=== PATIENT | male | born 1985 | race Caucasian/White ===

== ENCOUNTER 2017-02-20 21:05 | Emergency (ER) | payer OTHER ==
[~2017-02-20] VITALS: Ht 198.1 cm; Wt 86.4 kg
[~2017-02-20 21:05] MED LIST: KEP500TA PO
[2017-02-20 21:12] VITALS: BP 152/98; PULSE 105; RESP 16; O2SAT 97
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
[2017-02-20] MEDS ORDERED: Haloperidol 5 mg/mL Inj IM ONE (21:35)
[2017-02-20 22:58] LABS: BASOPHILS % (AUTO) 0.2 % (0-3); EOSINOPHILS % (AUTO) 2.3 % (0-5); MONOCYTES % (AUTO) 11.3 % (4-12); Mean Corpuscular Hemoglobin 32.5 pg (27.0-35.0); Mean Corpuscular Volume 89.5 fL (81-100); NEUTROPHILS % (AUTO) 54.9 % (40-74); Platelet Count 218 bil/L (150-400)
[2017-02-21 10:11] VITALS: BP 101/59; PULSE 87; RESP 18; O2SAT 98
== END 2017-02-21 10:12 ==
LOC: SED 21:05
DX: R45.851 Suicidal ideations (principal); F15.20 Other stimulant dependence, uncomplicated; S60.812A Abrasion of left wrist, initial encounter; X78.9XXA Intentional self-harm by unspecified sharp object, initial encounter; Y93.9 Activity, unspecified; Y92.9 Unspecified place or not applicable; Y99.8 Other external cause status; F17.200 Nicotine dependence, unspecified, uncomplicated; Z87.828 Personal history of other (healed) physical injury and trauma
CPT/HCPCS: 36415; 80053; 81002; 82075; 84443; 85025; 90791; 96372; 99285; G0480; J1200; J1630; J2060

== ENCOUNTER 2017-05-12 22:52 | Emergency (ER) | payer OTHER ==
[~2017-05-12] VITALS: Ht 198.1 cm; Wt 100.0 kg
[2017-05-12 22:58] VITALS: BP 117/79; PULSE 60; RESP 27; O2SAT 98
[2017-05-12] MEDS ORDERED: Tetracaine 0.5% 4 mL Ophthalmic Solution ONE (23:07)
[2017-05-12] MEDS ORDERED: Fluorescein 0.6 mg Ophthalmic Strip ONE (23:07)
[2017-05-12] MEDS ORDERED: 0.9% Sodium Chloride Inhalation Solution ONE (23:07)
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
[2017-05-13] MEDS ORDERED: Ondansetron 2 mg/mL 2 mL Inj IVPUSH ONE ×2 (00:05→01:50)
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
[2017-05-13] MEDS ORDERED: fentaNYL-PF 50 mCg/mL 2 mL Inj IVPUSH ONE (00:15)
[2017-05-13 00:33] LABS: BASOPHILS % (AUTO) 0.4 % (0-3); EOSINOPHILS % (AUTO) 4.1 % (0-5); MONOCYTES % (AUTO) 13.4 % (4-12); Mean Corpuscular Hemoglobin 32.8 pg (27.0-35.0); Mean Corpuscular Volume 93.8 fL (81-100); NEUTROPHILS % (AUTO) 37.2 % (40-74); Platelet Count 258 bil/L (150-400)
[2017-05-13 00:38] LABS: INR 0.88 ratio
[2017-05-13] MEDS ORDERED: CYCLOPENTOLATE 0.5% LEFT_EYE ONE (01:45)
[2017-05-13] MEDS ORDERED: Cyclopentolate 2% 2 mL Ophthalmic Solution LEFT_EYE ONE (01:55)
[2017-05-13] MEDS ORDERED: PrednisoLONE 1% 5 mL Ophthalmic Suspension AFFECT_EYE SCH (02:50)
[2017-05-13] MEDS ORDERED: HYDR-4003 PO (03:10)
[2017-05-13 04:19] VITALS: BP 107/64; PULSE 75; RESP 16; O2SAT 96
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
[2017-05-13] MEDS ORDERED: Erythromycin 0.5% 1 Gm Ophthalmic Ointment LEFT_EYE SCH (21:00)
== END 2017-05-13 03:55 | disposition home or self-care (01) ==
LOC: SED 22:52
DX: S05.12XA Contusion of eyeball and orbital tissues, left eye, initial encounter (principal); S05.02XA Injury of conjunctiva and corneal abrasion without foreign body, left eye, initial encounter; V47.6XXA Car passenger injured in collision with fixed or stationary object in traffic accident, initial encounter; Y93.89 Activity, other specified; Y92.828 Other wilderness area as the place of occurrence of the external cause; Y99.8 Other external cause status; H53.8 Other visual disturbances; F17.200 Nicotine dependence, unspecified, uncomplicated; Z87.820 Personal history of traumatic brain injury
CPT/HCPCS: 70450; 70486; 80053; 85025; 85610; 85730; 96374; 96375; 96376; 99285; J2405; J3010